=== PATIENT | female | born 1995 | race Caucasian/White ===

== ENCOUNTER 2017-08-25 23:12 | Inpatient (IN) | payer OTHER ==
[2017-08-25] MEDS ORDERED: SODIUM CHLORIDE 0.9% 1,000 ML IV STA (23:53)
[2017-08-25] MEDS ORDERED: FAMOTIDINE 20 MG/2 ML VIAL IV STA (23:53)
[2017-08-25] MEDS ORDERED: ONDANSETRON 4 MG/2 ML VIAL IVP STA (23:53)
--- NOTE | 2017-08-25 23:56 | ED ---
General Adult HPI - General Chief complaint: Nausea/Vomiting/Diarrhea Stated complaint: Vomiting Time Seen by Provider: 08/25/17 23:44 Source: patient, family, RN notes reviewed Mode of arrival: ambulatory Limitations: no limitations - History of Present Illness Initial comments: Patient is a pleasant 22-year-old female presenting to the emergency Department with complaints of nausea and vomiting. Onset was today. Patient has vomited multiple times. Patient last check her blood sugar yesterday yesterday at 157. No abdominal pain. No constipation or diarrhea. Patient still has nausea however mild at this point. Patient is diabetic without any known history of diabetic ketoacidosis. - Related Data Allergies Allergy/AdvReac Type Severity Reaction Status Date / Time azithromycin Allergy Rash/Hives Verified 08/25/17 23:20 cefprozil [From Cefzil] Allergy Rash/Hives Verified 08/25/17 23:20 Penicillins Allergy Rash/Hives Verified 08/25/17 23:20 Review of Systems ROS Statement: Those systems with pertinent positive or pertinent negative responses have been documented in the HPI. ROS Other: All systems not noted in ROS Statement are negative. Constitutional: Denies: fever Eyes: Denies: eye pain ENT: Denies: ear pain Respiratory: Denies: cough Cardiovascular: Denies: chest pain Endocrine: Reports: fatigue, polydipsia Gastrointestinal: Reports: nausea, vomiting. Denies: abdominal pain Genitourinary: Denies: dysuria Musculoskeletal: Denies: back pain Skin: Denies: rash Neurological: Denies: weakness Past Medical History Past Medical History: Diabetes Mellitus Additional Past Medical History / Comment(s): claire's History of Any Multi-Drug Resistant Organisms: None Reported Past Surgical History: Tonsillectomy Past Psychological History: No Psychological Hx Reported Smoking Status: Current every day smoker Past Alcohol Use History: None Reported Past Drug Use History: None Reported General Exam Limitations: no limitations General appearance: alert, in no apparent distress Head exam: Present: atraumatic Eye exam: Present: normal appearance, PERRL ENT exam: Present: mucous membranes dry Neck exam: Present: normal inspection Respiratory exam: Present: normal lung sounds bilaterally Cardiovascular Exam: Present: tachycardia GI/Abdominal exam: Present: soft. Absent: tenderness Extremities exam: Present: normal inspection Neurological exam: Present: alert Psychiatric exam: Present: normal affect, normal mood Skin exam: Present: normal color Course Vital Signs 08/25/17 08/26/17 23:16 01:05 Temperature 98.4 F 98.4 F Pulse Rate 142 H 149 H Respiratory 32 H 20 Rate Blood Pressure 127/80 111/71 O2 Sat by Pulse 97 100 Oximetry - Reevaluation(s) Reevaluation #1: 08/26/17 01:13 Case was discussed with Dr. Oropeza, who will consult for critical care. Medical Decision Making - Medical Decision Making Patient reevaluated. Patient and family are updated on results and plan. Patient started on DKA protocol. Dr. Prater has been paged for admission for Dr. Cabello. - Lab Data Result diagrams: 08/26/17 00:05 08/26/17 00:05 Lab Results 08/26/17 08/26/17 08/26/17 Range/Units 00:05 00:05 00:08 WBC 15.5 H (4.0-11.0) k/uL RBC 5.14 (3.80-5.40) m/uL Hgb 15.4 (11.4-16.0) gm/dL Hct 48.7 H (34.0-46.0) % MCV 94.6 (80.0-100.0) fL MCH 29.9 (25.0-35.0) pg MCHC 31.6 (31.0-37.0) g/dL RDW 12.2 (11.5-15.5) % Plt Count 385 (150-450) k/uL Neutrophils % 88 % Lymphocytes % 7 % Monocytes % 3 % Eosinophils % 1 % Basophils % 0 % Neutrophils # 13.6 H (1.3-7.7) k/uL Lymphocytes # 1.1 (1.0-4.8) k/uL Monocytes # 0.5 (0-1.0) k/uL Eosinophils # 0.1 (0-0.7) k/uL Basophils # 0.0 (0-0.2) k/uL Hypochromasia Slight Sodium 138 (137-145) mmol/L Potassium 5.7 H (3.5-5.1) mmol/L Chloride 95 L (98-107) mmol/L Carbon Dioxide <5 L* (22-30) mmol/L Anion Gap mmol/L BUN 19 H (7-17) mg/dL Creatinine 1.60 H (0.52-1.04) mg/dL Est GFR (CKD-EPI)AfAm 53 (>60 ml/min/1.73 sqM) Est GFR (CKD-EPI)NonAf 46 (>60 ml/min/1.73 sqM) Glucose 690 H* (74-99) mg/dL POC Glucose (mg/dL) >600 H (75-99) mg/dL POC Glu Quantitative Manager ID Kerry Coreas Calcium 12.9 H (8.4-10.2) mg/dL Total Bilirubin 0.6 (0.2-1.3) mg/dL AST 23 (14-36) U/L ALT 26 (9-52) U/L Alkaline Phosphatase 174 H (38-126) U/L Total Protein 8.7 H (6.3-8.2) g/dL Albumin 5.4 H (3.5-5.0) g/dL Amylase 106 (30-110) U/L Lipase 22 L (23-300) U/L Acetone, Qual Positive (Negative) Critical Care Time Critical Care Time: Yes Total Critical Care Time: 31 Disposition Clinical Impression: Diabetic ketoacidosis Disposition: ADMITTED IP TO THIS [facility] Condition: Serious Decision Time: 00:51
[2017-08-26 00:10] LABS: Glucose,Whole Blood >600 mg/dL (75-99)
[2017-08-26] MEDS ORDERED: INSULIN REGULAR 100 UNIT/ML VIAL IV ONE (00:15)
[2017-08-26 00:19] LABS: Basophils % (A) 0 %; Eosinophils # (A) 0.1 k/uL (0-0.7); Eosinophils % (A) 1 %; HCT 48.7 % (34.0-46.0); HGB 15.4 gm/dL (11.4-16.0); Hypochromasia Slight; Lymphocytes # (A) 1.1 k/uL (1.0-4.8); Lymphocytes % (A) 7 %; MCH 29.9 pg (25.0-35.0); MCHC 31.6 g/dL (31.0-37.0); MCV 94.6 fL (80.0-100.0); Mean Platelet Volume 8.1; Monocytes # (A) 0.5 k/uL (0-1.0); Monocytes % (A) 3 %; Neutrophils # (A) 13.6 k/uL (1.3-7.7); Neutrophils % (A) 88 %; Platelet Count 385 k/uL (150-450); RBC 5.14 m/uL (3.80-5.40); RDW 12.2 % (11.5-15.5); WBC 15.5 k/uL (4.0-11.0)
[2017-08-26 00:26] LABS: Albumin 5.4 g/dL (3.5-5.0); Amylase 106 U/L (30-110); Chloride 95 mmol/L (98-107); Lipase 22 U/L (23-300); Sodium 138 mmol/L (137-145); Total Bilirubin 0.6 mg/dL (0.2-1.3); Total Protein 8.7 g/dL (6.3-8.2)
[2017-08-26 00:32] LABS: Calcium 12.9 mg/dL (8.4-10.2)
[2017-08-26 00:34] LABS: Blood Urea Nitrogen 19 mg/dL (7-17); Potassium 5.7 mmol/L (3.5-5.1)
[2017-08-26 00:35] LABS: ALT 26 U/L (9-52); AST 23 U/L (14-36); Alkaline Phosphatase 174 U/L (38-126)
[2017-08-26 00:36] LABS: Carbon Dioxide <5 mmol/L (22-30); Glucose 690 mg/dL (74-99)
[2017-08-26] MEDS ORDERED: SODIUM CHLORIDE 0.9% 1,000 ML IV ONE ×2 (00:49→01:12)
[2017-08-26 01:01] LABS: Glucose,Whole Blood >600 mg/dL (75-99)
[2017-08-26] MEDS: INSULIN REGULAR 100 UNIT in SODIUM CHLORIDE 0.9% 100 ML IV SCH ×3 (01:01→21:07)
[2017-08-26 01:05] LABS: T4, Free (Free Thyroxine) 0.97 ng/dL (0.78-2.19)
--- NOTE | 2017-08-26 01:22 | XR ---
EXAMINATION TYPE: XR chest 2V DATE OF EXAM: 08/26/2017 COMPARISON: NONE HISTORY: Vomiting and nausea TECHNIQUE: Frontal and lateral views of the chest are obtained. FINDINGS: Heart and mediastinum are normal. Lungs are clear. Diaphragm is normal. Bony thorax appear s normal. IMPRESSION: Normal chest
[2017-08-26 02:09] LABS: Mucus,Urine Rare /hpf; RBC,Urine <1 /hpf (0-5); Squamous Epithelial Cell,Urine <1 /hpf (0-4); WBC,Urine 1 /hpf (0-5)
[2017-08-26 02:10] LABS: Appearance,Urine Clear (Clear); Color,Urine Light Yellow; Glucose,Urine (UA) 4+ (Negative); Protein,Urine Negative (Negative); Specific Gravity,Urine 1.011 (1.001-1.035)
[2017-08-26 02:11] LABS: Bilirubin,Urine Negative (Negative); Blood,Urine Negative (Negative); Ketones,Urine 4+ (Negative); Leukocyte Esterase,Urine Negative (Negative); Nitrite,Urine Negative (Negative); Urobilinogen,Urine <2.0 mg/dL (<2.0)
[2017-08-26 02:15] LABS: Glucose,Whole Blood >600 mg/dL (75-99)
[2017-08-26 03:14] LABS: Glucose,Whole Blood 554 mg/dL (75-99)
[2017-08-26 04:12] LABS: Glucose,Whole Blood 339 mg/dL (75-99)
[2017-08-26] MEDS: SODIUM CHLORIDE 0.9% 1,000 ML IV SCH ×4 (04:20→21:14)
[2017-08-26] MEDS: D5-0.45% NACL WITH KCL 20MEQ/L 1,000 ML IV SCH ×3 (05:01→20:28)
[2017-08-26 05:02] LABS: Phosphorus 3.5 mg/dL (2.5-4.5); Potassium 4.1 mmol/L (3.5-5.1)
[2017-08-26 05:12] LABS: Glucose,Whole Blood 300 mg/dL (75-99)
[2017-08-26 05:58] LABS: Glucose,Whole Blood 255 mg/dL (75-99)
[2017-08-26 07:08] LABS: Glucose,Whole Blood 244 mg/dL (75-99)
[2017-08-26 08:38] LABS: Glucose,Whole Blood 218 mg/dL (75-99)
[2017-08-26 09:22] LABS: Anion Gap 11 mmol/L; Blood Urea Nitrogen 16 mg/dL (7-17); Carbon Dioxide 16 mmol/L (22-30); Chloride 114 mmol/L (98-107); Glucose 207 mg/dL (74-99); Phosphorus 2.3 mg/dL (2.5-4.5); Potassium 3.8 mmol/L (3.5-5.1); Sodium 141 mmol/L (137-145)
[2017-08-26 09:24] LABS: Glucose,Whole Blood 219 mg/dL (75-99)
[2017-08-26 10:43] LABS: Glucose,Whole Blood 267 mg/dL (75-99)
[2017-08-26 11:21] LABS: Hemoglobin A1C 12.3 % (4.0-6.0)
[2017-08-26 12:37] LABS: Glucose,Whole Blood 223 mg/dL (75-99)
[2017-08-26 12:37] LABS: Glucose,Whole Blood 241 mg/dL (75-99)
[2017-08-26 12:51] VITALS: BMI 28.7
[2017-08-26] MEDS ORDERED: NALOXONE 0.4 MG/ML 1 ML VIAL IV PRN (12:56)
[2017-08-26 13:41] LABS: Glucose,Whole Blood 184 mg/dL (75-99)
--- NOTE | 2017-08-26 14:11 | P.CNPUL ---
History of Present Illness Consult date: 08/26/17 Requesting physician: Maite Prater Reason for consult: other (Acute diabetic ketoacidosis) Chief complaint: Nausea vomiting History of present illness: This is a 22-year-old female with history of type 1 diabetes, diagnosed at age 14, patient is on insulin, compliant with her insulin, and she is being followed by a statistics intern. Patient is also known to have Claire's thyroiditis, presented to the ER with 1 day history of nausea and vomiting. Patient was noted to have elevated blood sugar, anion gap metabolic acidosis, and positive ketones. Patient had no symptoms to suggest ongoing infection, she had no headache no blurred vision no dizziness no cough no wheezing no sore throat, no dysuria and no frequency no urgency. Patient was started on the DKA protocol, admitted to the intensive care unit, and I was asked to see her on consultation. She has made a significant improvement already since her presentation to the ER last night. Review of Systems 14 point review of systems were obtained, please refer to pertinent positives in HPI, otherwise remaining systems are negative. Past Medical History Past Medical History: Diabetes Mellitus Additional Past Medical History / Comment(s): claire's History of Any Multi-Drug Resistant Organisms: None Reported Past Surgical History: Tonsillectomy Past Anesthesia/Blood Transfusion Reactions: No Reported Reaction Past Psychological History: No Psychological Hx Reported Smoking Status: Current every day smoker Past Alcohol Use History: None Reported Past Drug Use History: None Reported - Past Family History Mother Family Medical History: Thyroid Disorder Additional Family Medical History / Comment(s): SVT, ablation for arrhythmia, hypothyroid Father Family Medical History: Hyperlipidemia Medications and Allergies Home Medications Medication Instructions Recorded Confirmed Type INSULIN LISPRO (humaLOG) [humaLOG] See Protocol SQ ACHS 08/26/17 08/26/17 History Insulin Degludec [Tresiba 15 unit SQ BID 08/26/17 08/26/17 History Flextouch U-200] Levothyroxine Sodium [Synthroid] 200 mcg PO DAILY 08/26/17 08/26/17 History Allergies Allergy/AdvReac Type Severity Reaction Status Date / Time azithromycin Allergy Rash/Hives Verified 08/26/17 10:14 [email or web address] [From Cefzil] Allergy Rash/Hives Verified 08/26/17 10:14 Penicillins Allergy Rash/Hives Verified 08/26/17 10:14 Physical Exam Vitals: Vital Signs Temp Pulse Pulse Resp BP BP Pulse Ox 08/26/17 13:00 97 100 08/26/17 12:50 87 100 08/26/17 12:45 98 08/26/17 12:00 107 H 18 109/67 100 08/26/17 11:00 98 18 133/65 96 08/26/17 10:00 105 H 18 108/57 98 08/26/17 09:00 118 H 18 121/68 94 L 08/26/17 08:00 107 H 18 119/71 95 08/26/17 06:57 105 H 16 116/65 98 08/26/17 06:00 105 H 18 110/64 100 08/26/17 05:00 96 16 112/67 100 08/26/17 04:00 110 H 16 149/86 100 08/26/17 03:00 98.9 F 118 H 17 138/89 99 08/26/17 02:00 118 H 20 142/77 100 08/26/17 01:05 98.4 F 149 H 20 111/71 100 08/26/17 01:03 105 H 18 99/75 100 08/25/17 23:16 98.4 F 142 H 32 H 127/80 97 Intake and Output 08/25/17 08/26/17 08/26/17 22:59 06:59 14:59 Intake Total 36.877 667.05 Output Total 800 Balance 36.877 -132.95 Intake: IV 150 D5-0.45% NaCl with KCl 150 20Meq/l 1,000 ml @ 150 mls/hr IV .Q6H40M [facility] Rx# :[id number] Intake, IV Titration 36.877 37.05 Amount Insulin Regular 100 unit 36.877 37.05 In Sodium Chloride 0.9% 100 ml @ 0.1 UNITS/KG/HR 7.19 mls/hr IV .Q14H3M [facility] Rx#:[id number] Oral 480 Output: Urine 800 Other: # Voids 1 Weight 81.3 kg 71.214 kg Physical Exam: Revealed a 22-year-old female in no form of distress, very pleasant. Head: Atraumatic, normocephalic. HEENT:[Neck is supple.] [No neck masses.] [No thyromegaly.] [No JVD.] Chest: [Clear throughout, no crackles, no rhonchi, no wheezes.] Cardiac Exam: [Normal S1 and S2, no S3 gallop, no murmur.] Abdomen: [Soft, nontender, no megaly, no rebound, no guarding, normal bowel sounds.] Extremities: [No clubbing, no edema, no cyanosis.] Neurological Exam: [No focal neurologic deficit. Psychiatric: Normal mood affect and mental status examination. Lymphatics: No lymphadenopathy. [place]: Normal range of motion, no focal deformity.] Results - Laboratory Findings CBC and BMP: 08/26/17 00:05 08/26/17 08:50 Abnormal lab findings: Abnormal Labs 08/26/17 08/26/17 08/26/17 00:05 00:05 00:05 WBC 15.5 H Hct 48.7 H Neutrophils # 13.6 H Potassium 5.7 H Chloride 95 L Carbon Dioxide <5 L* BUN 19 H Creatinine 1.60 H Glucose 690 H* POC Glucose (mg/dL) Calcium 12.9 H Phosphorus Alkaline Phosphatase 174 H Total Protein 8.7 H Albumin 5.4 H Lipase 22 L TSH 14.100 H Free T3 pg/mL 2.2 L Urine Glucose (UA) Urine Ketones Urine Mucus 08/26/17 08/26/17 08/26/17 00:08 00:59 01:00 WBC Hct Neutrophils # Potassium Chloride Carbon Dioxide BUN Creatinine Glucose POC Glucose (mg/dL) >600 H >600 H Calcium Phosphorus Alkaline Phosphatase Total Protein Albumin Lipase TSH Free T3 pg/mL Urine Glucose (UA) 4+ H Urine Ketones 4+ H Urine Mucus Rare H 08/26/17 08/26/17 08/26/17 01:58 02:58 03:56 WBC Hct Neutrophils # Potassium Chloride Carbon Dioxide BUN Creatinine Glucose POC Glucose (mg/dL) >600 H 554 H 339 H Calcium Phosphorus Alkaline Phosphatase Total Protein Albumin Lipase TSH Free T3 pg/mL Urine Glucose (UA) Urine Ketones Urine Mucus 08/26/17 08/26/17 08/26/17 04:06 04:57 05:56 WBC Hct Neutrophils # Potassium Chloride 111 H Carbon Dioxide 6 L* BUN Creatinine 1.20 H Glucose 349 H POC Glucose (mg/dL) 300 H 255 H Calcium Phosphorus Alkaline Phosphatase Total Protein Albumin Lipase TSH Free T3 pg/mL Urine Glucose (UA) Urine Ketones Urine Mucus 08/26/17 08/26/17 08/26/17 06:54 08:36 08:50 WBC Hct Neutrophils # Potassium Chloride 114 H Carbon Dioxide 16 L BUN Creatinine Glucose 207 H POC Glucose (mg/dL) 244 H 218 H Calcium Phosphorus 2.3 L Alkaline Phosphatase Total Protein Albumin Lipase TSH Free T3 pg/mL Urine Glucose (UA) Urine Ketones Urine Mucus 08/26/17 08/26/17 08/26/17 09:23 10:13 11:55 WBC Hct Neutrophils # Potassium Chloride Carbon Dioxide BUN Creatinine Glucose POC Glucose (mg/dL) 219 H 267 H 241 H Calcium Phosphorus Alkaline Phosphatase Total Protein Albumin Lipase TSH Free T3 pg/mL Urine Glucose (UA) Urine Ketones Urine Mucus 08/26/17 08/26/17 12:15 13:38 WBC Hct Neutrophils # Potassium Chloride Carbon Dioxide BUN Creatinine Glucose POC Glucose (mg/dL) 223 H 184 H Calcium Phosphorus Alkaline Phosphatase Total Protein Albumin Lipase TSH Free T3 pg/mL Urine Glucose (UA) Urine Ketones Urine Mucus - Diagnostic Findings Chest x-ray: image reviewed (Chest x-ray was reviewed, no evidence of active disease.) Assessment and Plan Assessment: Impression: 1 acute diabetic ketoacidosis, exact etiology is not clear, no clear-cut evidence of infection, patient denies noncompliance with her medications. Recommendation: Continue present treatment plan as per DKA protocol, patient is presently on insulin drip, IV fluids, clinically feeling much better, we'll continue the same. Time with Patient: Greater than 30
[2017-08-26 15:08] LABS: Glucose,Whole Blood 173 mg/dL (75-99)
[2017-08-26 15:29] LABS: Anion Gap 10 mmol/L; Blood Urea Nitrogen 16 mg/dL (7-17); Calcium 10.3 mg/dL (8.4-10.2); Carbon Dioxide 19 mmol/L (22-30); Chloride 111 mmol/L (98-107); Glucose 175 mg/dL (74-99); Potassium 3.6 mmol/L (3.5-5.1); Sodium 140 mmol/L (137-145)
[2017-08-26] MEDS ORDERED: Potassium Replacement Protocol 1 EACH MISC MISCELLANE PRN (15:58)
[2017-08-26] MEDS ORDERED: POTASSIUM CHLORIDE ER 20 MEQ TAB.ER PO SCH (16:00)
[2017-08-26 16:08] LABS: Glucose,Whole Blood 175 mg/dL (75-99)
--- NOTE | 2017-08-26 16:46 | P.HPIM ---
History of Present Illness H&P Date: 08/26/17 Chief Complaint: Nausea and vomiting Patient is a 22-year-old female with a known history of diabetes type 1 since he is 14 and Claire's thyroiditis currently taking levothyroxine at home came to ER with complaints of nausea and vomiting 1 day. Patient presented to ER for further evaluation. Patient was found to be having acidosis with bicarbonate level less than 5 and blood sugar around 600 on admission with a stone positive. Patient is being treated for acute diabetic ketoacidosis currently on insulin drip. Denied any complaints of fever or chills. Patient denied any abdominal pain. No diarrhea. No cough or sputum production. Denied dysuria or hematuria. No chest pain or shortness of breath. Patient says that he never had any DKA in the past. Denied any recent illnesses other than a cold about 2 weeks back. No sick contacts or recent travel. TSH 14.1. Free T4 are within normal limits WBC 15.5 Slightly elevated BUN/creatinine. Chest x-ray is normal UA is negative for infection. Positive for ketones Patient does use insulin syringes at home. Review of Systems Constitutional: Patient denies any fever or chills . No generalized weakness or weight loss. Abdomen: Patient denied nausea vomiting and diarrhea and abdominal pain. Cardiovascular: Patient denies any chest pain or short of breath no palpitations. Respiratory: patient denied any cough is from production. No shortness of breath Neurologic: Patient denied any numbness or tingling headache. Musculoskeletal: Patient denies any complaints of joint swelling or deformity. Skin: Negative Psychiatric: Negative Endocrine: No heat or cold intolerance. No recent weight gain. Genitourinary: No dysuria or hematuria. All other 14 point ROS negative except the above Past Medical History Past Medical History: Diabetes Mellitus Additional Past Medical History / Comment(s): claire's History of Any Multi-Drug Resistant Organisms: None Reported Past Surgical History: Tonsillectomy Past Psychological History: No Psychological Hx Reported Smoking Status: Current every day smoker Past Alcohol Use History: None Reported Past Drug Use History: None Reported - Past Family History Mother Family Medical History: Thyroid Disorder Additional Family Medical History / Comment(s): SVT, ablation for arrhythmia, hypothyroid Father Family Medical History: Hyperlipidemia Medications and Allergies Home Medications Medication Instructions Recorded Confirmed Type INSULIN LISPRO (humaLOG) [humaLOG] See Protocol SQ ACHS 08/26/17 08/26/17 History Insulin Degludec [Tresiba 15 unit SQ BID 08/26/17 08/26/17 History Flextouch U-200] Levothyroxine Sodium [Synthroid] 200 mcg PO DAILY 08/26/17 08/26/17 History Allergies Allergy/AdvReac Type Severity Reaction Status Date / Time azithromycin Allergy Rash/Hives Verified 08/26/17 10:14 [email or web address] [From Cefzil] Allergy Rash/Hives Verified 08/26/17 10:14 Penicillins Allergy Rash/Hives Verified 08/26/17 10:14 Physical Exam Vitals: Vital Signs Temp Pulse Resp BP Pulse Ox 08/26/17 09:00 118 H 18 121/68 94 L 08/26/17 08:00 107 H 18 119/71 95 08/26/17 06:57 105 H 16 116/65 98 08/26/17 06:00 105 H 18 110/64 100 08/26/17 05:00 96 16 112/67 100 08/26/17 04:00 110 H 16 149/86 100 08/26/17 03:00 98.9 F 118 H 17 138/89 99 08/26/17 02:00 118 H 20 142/77 100 08/26/17 01:05 98.4 F 149 H 20 111/71 100 08/25/17 23:16 98.4 F 142 H 32 H 127/80 97 Intake and Output 08/25/17 08/26/17 08/26/17 22:59 06:59 14:59 Intake Total 36.877 16.75 Balance 36.877 16.75 Intake: Intake, IV Titration 36.877 16.75 Amount Insulin Regular 100 unit 36.877 16.75 In Sodium Chloride 0.9% 100 ml @ 0.1 UNITS/KG/HR 7.19 mls/hr IV .Q14H3M [facility] Rx#:[id number] Other: Weight 71.214 kg PHYSICAL EXAMINATION: Patient is lying in the bed comfortably, no acute distress, awake alert and oriented.. HEENT: Normocephalic. Neck is supple. Pupils reactive. Nostrils clear. Oral cavity is moist. Ears reveal no drainage. Neck reveals no JVD, carotid bruits, or thyromegaly. CHEST EXAMINATION: Trachea is central. Symmetrical expansion. Lung villa clear to auscultation and percussion. CARDIAC: Normal S1, S2 with no gallops. No murmurs ABDOMEN: Soft. Bowel sounds normal. No organomegaly. No abdominal bruits. Extremities: reveal no edema. No clubbing or cyanosis Neurologically awake, alert, oriented x3 with well-coordinated movements. No focal deficits noted Skin: No rash or skin lesions. Psychiatric: Coperative. Nonsuicidal Musculoskeletal: No joint swelling or deformity. Normal range of motion. Results CBC & Chem 7: 08/26/17 00:05 08/26/17 15:06 Labs: Abnormal Lab Results - Last 24 Hours (Table) 08/26/17 08/26/17 08/26/17 Range/Units 00:05 00:05 00:05 WBC 15.5 H (4.0-11.0) k/uL Hct 48.7 H (34.0-46.0) % Neutrophils # 13.6 H (1.3-7.7) k/uL Potassium 5.7 H (3.5-5.1) mmol/L Chloride 95 L (98-107) mmol/L Carbon Dioxide <5 L* (22-30) mmol/L BUN 19 H (7-17) mg/dL Creatinine 1.60 H (0.52-1.04) mg/dL Glucose 690 H* (74-99) mg/dL POC Glucose (mg/dL) (75-99) mg/dL Calcium 12.9 H (8.4-10.2) mg/dL Phosphorus (2.5-4.5) mg/dL Alkaline Phosphatase 174 H (38-126) U/L Total Protein 8.7 H (6.3-8.2) g/dL Albumin 5.4 H (3.5-5.0) g/dL Lipase 22 L (23-300) U/L TSH 14.100 H (0.465-4.680) mIU/L Free T3 pg/mL 2.2 L (2.8-5.3) pg/ml Urine Glucose (UA) (Negative) Urine Ketones (Negative) Urine Mucus (None) /hpf 08/26/17 08/26/17 08/26/17 Range/Units 00:08 00:59 01:00 WBC (4.0-11.0) k/uL Hct (34.0-46.0) % Neutrophils # (1.3-7.7) k/uL Potassium (3.5-5.1) mmol/L Chloride (98-107) mmol/L Carbon Dioxide (22-30) mmol/L BUN (7-17) mg/dL Creatinine (0.52-1.04) mg/dL Glucose (74-99) mg/dL POC Glucose (mg/dL) >600 H >600 H (75-99) mg/dL Calcium (8.4-10.2) mg/dL Phosphorus (2.5-4.5) mg/dL Alkaline Phosphatase (38-126) U/L Total Protein (6.3-8.2) g/dL Albumin (3.5-5.0) g/dL Lipase (23-300) U/L TSH (0.465-4.680) mIU/L Free T3 pg/mL (2.8-5.3) pg/ml Urine Glucose (UA) 4+ H (Negative) Urine Ketones 4+ H (Negative) Urine Mucus Rare H (None) /hpf 08/26/17 08/26/17 08/26/17 Range/Units 01:58 02:58 03:56 WBC (4.0-11.0) k/uL Hct (34.0-46.0) % Neutrophils # (1.3-7.7) k/uL Potassium (3.5-5.1) mmol/L Chloride (98-107) mmol/L Carbon Dioxide (22-30) mmol/L BUN (7-17) mg/dL Creatinine (0.52-1.04) mg/dL Glucose (74-99) mg/dL POC Glucose (mg/dL) >600 H 554 H 339 H (75-99) mg/dL Calcium (8.4-10.2) mg/dL Phosphorus (2.5-4.5) mg/dL Alkaline Phosphatase (38-126) U/L Total Protein (6.3-8.2) g/dL Albumin (3.5-5.0) g/dL Lipase (23-300) U/L TSH (0.465-4.680) mIU/L Free T3 pg/mL (2.8-5.3) pg/ml Urine Glucose (UA) (Negative) Urine Ketones (Negative) Urine Mucus (None) /hpf 08/26/17 08/26/17 08/26/17 Range/Units 04:06 04:57 05:56 WBC (4.0-11.0) k/uL Hct (34.0-46.0) % Neutrophils # (1.3-7.7) k/uL Potassium (3.5-5.1) mmol/L Chloride 111 H (98-107) mmol/L Carbon Dioxide 6 L* (22-30) mmol/L BUN (7-17) mg/dL Creatinine 1.20 H (0.52-1.04) mg/dL Glucose 349 H (74-99) mg/dL POC Glucose (mg/dL) 300 H 255 H (75-99) mg/dL Calcium (8.4-10.2) mg/dL Phosphorus (2.5-4.5) mg/dL Alkaline Phosphatase (38-126) U/L Total Protein (6.3-8.2) g/dL Albumin (3.5-5.0) g/dL Lipase (23-300) U/L TSH (0.465-4.680) mIU/L Free T3 pg/mL (2.8-5.3) pg/ml Urine Glucose (UA) (Negative) Urine Ketones (Negative) Urine Mucus (None) /[facility] 08/26/17 08/26/17 08/26/17 Range/Units 06:54 08:36 08:50 WBC (4.0-11.0) k/uL Hct (34.0-46.0) % Neutrophils # (1.3-7.7) k/uL Potassium (3.5-5.1) mmol/L Chloride 114 H (98-107) mmol/L Carbon Dioxide 16 L (22-30) mmol/L BUN (7-17) mg/dL Creatinine (0.52-1.04) mg/dL Glucose 207 H (74-99) mg/dL POC Glucose (mg/dL) 244 H 218 H (75-99) mg/dL Calcium (8.4-10.2) mg/dL Phosphorus 2.3 L (2.5-4.5) mg/dL Alkaline Phosphatase (38-126) U/L Total Protein (6.3-8.2) g/dL Albumin (3.5-5.0) g/dL Lipase (23-300) U/L TSH (0.465-4.680) mIU/L Free T3 pg/mL (2.8-5.3) pg/ml Urine Glucose (UA) (Negative) Urine Ketones (Negative) Urine Mucus (None) /hpf 08/26/17 08/26/17 Range/Units 09:23 10:13 WBC (4.0-11.0) k/uL Hct (34.0-46.0) % Neutrophils # (1.3-7.7) k/uL Potassium (3.5-5.1) mmol/L Chloride (98-107) mmol/L Carbon Dioxide (22-30) mmol/L BUN (7-17) mg/dL Creatinine (0.52-1.04) mg/dL Glucose (74-99) mg/dL POC Glucose (mg/dL) 219 H 267 H (75-99) mg/dL Calcium (8.4-10.2) mg/dL Phosphorus (2.5-4.5) mg/dL Alkaline Phosphatase (38-126) U/L Total Protein (6.3-8.2) g/dL Albumin (3.5-5.0) g/dL Lipase (23-300) U/L TSH (0.465-4.680) mIU/L Free T3 pg/mL (2.8-5.3) pg/ml Urine Glucose (UA) (Negative) Urine Ketones (Negative) Urine Mucus (None) /hpf Thrombosis Risk Factor Assmnt - DVT/VTE Prophylaxis DVT/VTE Prophylaxis: Pharmacologic Prophylaxis ordered Assessment and Plan Assessment: Acute diabetic ketoacidosis Intractable nausea and vomiting. Improved now Claire's thyroiditis Elevated TSH level and normal free T4 Acute kidney injury most likely prerenal Hypercalcemia likely due to dehydration DVT prophylaxis Plan: Patient will be continued on insulin drip. Acidosis is getting better and anion gap almost closing. We will continue to monitor the patient ICU. Continue with the levothyroxine. Continue with IV hydration and follow up closely. Further conditions based on clinical course. Time with Patient: Greater than 30
[2017-08-26 17:51] LABS: Glucose,Whole Blood 77 mg/dL (75-99)
[2017-08-26 18:30] LABS: Glucose,Whole Blood 76 mg/dL (75-99)
[2017-08-26 19:15] LABS: Glucose,Whole Blood 210 mg/dL (75-99)
[2017-08-26 20:14] LABS: Glucose,Whole Blood 296 mg/dL (75-99)
[2017-08-26 20:48] LABS: Anion Gap 12 mmol/L; Blood Urea Nitrogen 14 mg/dL (7-17); Calcium 9.9 mg/dL (8.4-10.2); Carbon Dioxide 17 mmol/L (22-30); Chloride 107 mmol/L (98-107); Glucose 305 mg/dL (74-99); Phosphorus 2.5 mg/dL (2.5-4.5); Potassium 3.7 mmol/L (3.5-5.1); Sodium 136 mmol/L (137-145)
[2017-08-26 21:09] LABS: Glucose,Whole Blood 281 mg/dL (75-99)
[2017-08-26 22:08] LABS: Glucose,Whole Blood 249 mg/dL (75-99)
[2017-08-26 23:08] LABS: Glucose,Whole Blood 170 mg/dL (75-99)
[2017-08-27 00:29] LABS: Glucose,Whole Blood 141 mg/dL (75-99)
[2017-08-27 01:09] LABS: Glucose,Whole Blood 125 mg/dL (75-99)
[2017-08-27] MEDS: D5-0.45% NACL WITH KCL 20MEQ/L 1,000 ML IV SCH ×2 (01:41→07:43)
[2017-08-27] MEDS: INSULIN REGULAR 100 UNIT in SODIUM CHLORIDE 0.9% 100 ML IV SCH (01:48)
[2017-08-27 02:08] LABS: Glucose,Whole Blood 137 mg/dL (75-99)
[2017-08-27] MEDS: SODIUM CHLORIDE 0.9% 1,000 ML IV SCH (02:10)
[2017-08-27 03:04] LABS: Glucose,Whole Blood 202 mg/dL (75-99)
[2017-08-27 04:21] LABS: Glucose,Whole Blood 226 mg/dL (75-99)
[2017-08-27 05:03] LABS: Glucose,Whole Blood 237 mg/dL (75-99)
[2017-08-27 05:19] LABS: Basophils % (A) 0 %; Eosinophils # (A) 0.1 k/uL (0-0.7); Eosinophils % (A) 1 %; HCT 35.7 % (34.0-46.0); Lymphocytes # (A) 3.2 k/uL (1.0-4.8); Lymphocytes % (A) 34 %; MCH 29.7 pg (25.0-35.0); MCHC 33.8 g/dL (31.0-37.0); Mean Platelet Volume 7.7; Monocytes # (A) 0.5 k/uL (0-1.0); Monocytes % (A) 6 %; Neutrophils # (A) 5.4 k/uL (1.3-7.7); Neutrophils % (A) 58 %; Platelet Count 280 k/uL (150-450); RBC 4.07 m/uL (3.80-5.40); RDW 12.5 % (11.5-15.5); WBC 9.4 k/uL (4.0-11.0)
[2017-08-27 05:22] LABS: HGB 12.1 gm/dL (11.4-16.0); MCV 87.6 fL (80.0-100.0)
[2017-08-27 05:24] LABS: Anion Gap 10 mmol/L; Blood Urea Nitrogen 11 mg/dL (7-17); Calcium 9.5 mg/dL (8.4-10.2); Carbon Dioxide 19 mmol/L (22-30); Chloride 109 mmol/L (98-107); Glucose 232 mg/dL (74-99); Magnesium 1.5 mg/dL (1.6-2.3); Phosphorus 2.5 mg/dL (2.5-4.5); Potassium 3.8 mmol/L (3.5-5.1); Sodium 138 mmol/L (137-145)
[2017-08-27] MEDS ORDERED: Magnesium Replacement Protocol 1 EACH MISC MISCELLANE PRN (05:37)
[2017-08-27] MEDS: MAGNESIUM SULFATE-D5W PMX 1 GM in DEXTROSE/WATER 1 100ML.BAG IVPB SCH ×2 (05:48→06:51)
[2017-08-27] MEDS ORDERED: POTASSIUM CHLORIDE ER 20 MEQ TAB.ER PO SCH (06:00)
[2017-08-27 06:16] LABS: Glucose,Whole Blood 243 mg/dL (75-99)
[2017-08-27] MEDS: LEVOTHYROXINE 100 MCG TAB PO SCH (06:16)
[2017-08-27 06:55] LABS: Glucose,Whole Blood 253 mg/dL (75-99)
[2017-08-27] MEDS: PANTOPRAZOLE 40 MG TABLET PO SCH (07:44)
[2017-08-27 08:14] LABS: Glucose,Whole Blood 207 mg/dL (75-99)
[2017-08-27] MEDS ORDERED: INSULIN NPH 300 UNIT/3 ML VIAL SQ ONE (08:51)
[2017-08-27] MEDS ORDERED: SODIUM CHLORIDE 0.9% 1,000 ML IV SCH (09:00)
[2017-08-27] MEDS: INSULIN DETEMIR 100 UNIT/ML 10 ML VIAL SQ SCH (09:15)
[2017-08-27 09:20] LABS: Glucose,Whole Blood 219 mg/dL (75-99)
[2017-08-27 11:39] LABS: Glucose,Whole Blood 240 mg/dL (75-99)
[2017-08-27 12:40] LABS: Potassium 4.3 mmol/L (3.5-5.1)
[2017-08-27] MEDS: INSULIN ASPART 100 UNIT/ML 1 ML 10 ML VIAL SQ SCH ×5 (12:41→20:49)
--- NOTE | 2017-08-27 13:58 | P.PN ---
Subjective Progress Note Date: 08/27/17 Principal diagnosis: Acute diabetic ketoacidosis This is a 22-year-old female with history of type 1 diabetes, diagnosed at age 14, patient is on insulin, compliant with her insulin, and she is being followed by a will call order clerk. Patient is also known to have Mariluz's thyroiditis, presented to the ER with 1 day history of nausea and vomiting. Patient was noted to have elevated blood sugar, anion gap metabolic acidosis, and positive ketones. Patient had no symptoms to suggest ongoing infection, she had no headache no blurred vision no dizziness no cough no wheezing no sore throat, no dysuria and no frequency no urgency. Patient was started on the DKA protocol, admitted to the intensive care unit, and I was asked to see her on consultation. She has made a significant improvement already since her presentation to the ER last night. Patient was reevaluated today on 08/27/2017, doing well, relatively asymptomatic. Labs are normal, her anion gap has been completely closed. Objective - Vital Signs Vital signs: Vital Signs Temp 98.4 F 08/27/17 11:15 Pulse 93 08/27/17 11:15 Resp 18 08/27/17 11:15 BP 118/80 08/27/17 11:15 Pulse Ox 99 08/27/17 11:15 Intake & Output 08/26/17 08/27/17 08/27/17 18:59 06:59 18:59 Intake Total 1782.15 2465.452 1170.757 Output Total 800 0 0 Balance 982.15 2465.452 1170.757 Weight 71.214 kg 71.3 kg Intake: IV 900 2150 200 D5-0.45% NaCl with KCl 900 1950 200 20Meq/l 1,000 ml @ 150 mls/hr IV .Q6H40M [facility] Rx# :[id number] Magnesium Sulfate-D5w Pmx 200 1 gm In Dextrose/Water 1 100ml.bag @ 100 mls/hr IVPB Q1H [facility] Rx#: [id number] Intake, IV Titration 62.15 195.452 10.757 Amount Insulin Regular 100 unit 62.15 189.9 In Sodium Chloride 0.9% 100 ml @ 0.1 UNITS/KG/HR 7.19 mls/hr IV .Q14H3M [facility] Rx#:[id number] Insulin Regular 100 unit 5.552 10.757 In Sodium Chloride 0.9% 100 ml @ 1.25 UNIT/HR 1. 26 mls/hr IV .Q24H [facility] Rx #:[id number] Oral 820 120 960 Output: Urine 800 0 0 Other: Voiding Method Toilet Toilet Toilet Bedside Commode # Voids 0 1 0 # Bowel Movements 0 0 0 - Exam Physical Exam: Revealed a 22-year-old female in no form of distress, very pleasant. Head: Atraumatic, normocephalic. HEENT:[Neck is supple.] [No neck masses.] [No thyromegaly.] [No JVD.] Chest: [Clear throughout, no crackles, no rhonchi, no wheezes.] Cardiac Exam: [Normal S1 and S2, no S3 gallop, no murmur.] Abdomen: [Soft, nontender, no megaly, no rebound, no guarding, normal bowel sounds.] Extremities: [No clubbing, no edema, no cyanosis.] Neurological Exam: [No focal neurologic deficit. Psychiatric: Normal mood affect and mental status examination. Lymphatics: No lymphadenopathy. [place]: Normal range of motion, no focal deformity.] - Labs CBC & Chem 7: 08/27/17 04:35 08/27/17 12:05 Labs: Abnormal Lab Results - Last 24 Hours (Table) 08/26/17 08/26/17 08/26/17 Range/Units 15:05 15:06 16:07 Sodium (137-145) mmol/L Chloride 111 H (98-107) mmol/L Carbon Dioxide 19 L (22-30) mmol/L Glucose 175 H (74-99) mg/dL POC Glucose (mg/dL) 173 H 175 H (75-99) mg/dL Calcium 10.3 H (8.4-10.2) mg/dL Magnesium (1.6-2.3) mg/dL 08/26/17 08/26/17 08/26/17 Range/Units 19:14 20:09 20:12 Sodium 136 L (137-145) mmol/L Chloride (98-107) mmol/L Carbon Dioxide 17 L (22-30) mmol/L Glucose 305 H (74-99) mg/dL POC Glucose (mg/dL) 210 H 296 H (75-99) mg/dL Calcium (8.4-10.2) mg/dL Magnesium (1.6-2.3) mg/dL 08/26/17 08/26/17 08/26/17 Range/Units 21:05 22:06 23:07 Sodium (137-145) mmol/L Chloride (98-107) mmol/L Carbon Dioxide (22-30) mmol/L Glucose (74-99) mg/dL POC Glucose (mg/dL) 281 H 249 H 170 H (75-99) mg/dL Calcium (8.4-10.2) mg/dL Magnesium (1.6-2.3) mg/dL 08/27/17 08/27/17 08/27/17 Range/Units 00:28 01:07 02:06 Sodium (137-145) mmol/L Chloride (98-107) mmol/L Carbon Dioxide (22-30) mmol/L Glucose (74-99) mg/dL POC Glucose (mg/dL) 141 H 125 H 137 H (75-99) mg/dL Calcium (8.4-10.2) mg/dL Magnesium (1.6-2.3) mg/dL 08/27/17 08/27/17 08/27/17 Range/Units 03:03 04:20 04:35 Sodium (137-145) mmol/L Chloride 109 H (98-107) mmol/L Carbon Dioxide 19 L (22-30) mmol/L Glucose 232 H (74-99) mg/dL POC Glucose (mg/dL) 202 H 226 H (75-99) mg/dL Calcium (8.4-10.2) mg/dL Magnesium 1.5 L (1.6-2.3) mg/dL 08/27/17 08/27/17 08/27/17 Range/Units 05:01 06:14 06:53 Sodium (137-145) mmol/L Chloride (98-107) mmol/L Carbon Dioxide (22-30) mmol/L Glucose (74-99) mg/dL POC Glucose (mg/dL) 237 H 243 H 253 H (75-99) mg/dL Calcium (8.4-10.2) mg/dL Magnesium (1.6-2.3) mg/dL 08/27/17 08/27/17 08/27/17 Range/Units 08:12 09:17 11:28 Sodium (137-145) mmol/L Chloride (98-107) mmol/L Carbon Dioxide (22-30) mmol/L Glucose (74-99) mg/dL POC Glucose (mg/dL) 207 H 219 H 240 H (75-99) mg/dL Calcium (8.4-10.2) mg/dL Magnesium (1.6-2.3) mg/dL 08/27/17 Range/Units 12:05 Sodium 136 L (137-145) mmol/L Chloride (98-107) mmol/L Carbon Dioxide 17 L (22-30) mmol/L Glucose (74-99) mg/dL POC Glucose (mg/dL) (75-99) mg/dL Calcium (8.4-10.2) mg/dL Magnesium (1.6-2.3) mg/dL Assessment and Plan Assessment: Impression: 1 acute diabetic ketoacidosis, significant improvement noted over the last 24 hours, hence I plan to transfer the patient out of the ICU to a regular medical floor, she'll be placed on insulin sliding scale, and diet will be advanced accordingly. We'll continue to follow as needed. Time with Patient: Less than 30
[2017-08-27 15:28] VITALS: RESP 16
[2017-08-27 17:42] LABS: Glucose,Whole Blood 108 mg/dL (75-99)
[2017-08-27 20:44] LABS: Glucose,Whole Blood 111 mg/dL (75-99)
--- NOTE | 2017-08-27 23:32 | P.PN ---
Subjective Progress Note Date: 08/27/17 Principal diagnosis: Diabetic ketoacidosis Patient is a 22-year-old female with a known history of diabetes type 1 since he is 14 and Mariluz's thyroiditis currently taking levothyroxine at home came to ER with complaints of nausea and vomiting 1 day. Patient presented to ER for further evaluation. Patient was found to be having acidosis with bicarbonate level less than 5 and blood sugar around 600 on admission with a stone positive. Patient is being treated for acute diabetic ketoacidosis currently on insulin drip. Denied any complaints of fever or chills. Patient denied any abdominal pain. No diarrhea. No cough or sputum production. Denied dysuria or hematuria. No chest pain or shortness of breath. Patient says that he never had any DKA in the past. Denied any recent illnesses other than a cold about 2 weeks back. No sick contacts or recent travel. TSH 14.1. Free T4 are within normal limits WBC 15.5 Slightly elevated BUN/creatinine. Chest x-ray is normal UA is negative for infection. Positive for ketones Patient does use insulin pen at home. 08/27/2017 Patient denied any complaints of chest pain or shortness of breath. No cough or sputum production. No abdominal pain. No diarrhea or dysuria. DKA has resolved and patient was transferred to medical floor. Patient was started on Lantus and NovoLog 3 times a day before meals along with sliding scale. Otherwise blood pressure was still elevated this morning. Patient is tolerating oral diet. Anticipate discharge next 24 hours with better blood sugar control and insulin regimen. Pulmonary is on board. No other acute overnight issues All other review of systems negative except the above Current medications reviewed.. Objective - Vital Signs Vital signs: Vital Signs Temp 98.2 F 08/27/17 15:00 Pulse 83 08/27/17 15:00 Resp 16 08/27/17 15:00 BP 109/73 08/27/17 15:00 Pulse Ox 99 08/27/17 15:00 Intake & Output 08/26/17 08/27/17 08/27/17 18:59 06:59 18:59 Intake Total 1782.15 2465.452 1570.757 Output Total 800 0 0 Balance 982.15 2465.452 1570.757 Weight 71.214 kg 71.3 kg Intake: IV 900 2150 200 D5-0.45% NaCl with KCl 900 1950 200 20Meq/l 1,000 ml @ 150 mls/hr IV .Q6H40M [facility] Rx# :[id number] Magnesium Sulfate-D5w Pmx 200 1 gm In Dextrose/Water 1 100ml.bag @ 100 mls/hr IVPB Q1H [facility] Rx#: [id number] Intake, IV Titration 62.15 195.452 410.757 Amount Insulin Regular 100 unit 62.15 189.9 In Sodium Chloride 0.9% 100 ml @ 0.1 UNITS/KG/HR 7.19 mls/hr IV .Q14H3M [facility] Rx#:[id number] Insulin Regular 100 unit 5.552 10.757 In Sodium Chloride 0.9% 100 ml @ 1.25 UNIT/HR 1. 26 mls/hr IV .Q24H [facility] Rx #:[id number] Sodium Chloride 0.9% 1, 400 000 ml @ 100 mls/hr IV . Q10H [facility] Rx#:[id number] Oral 820 120 960 Output: Urine 800 0 0 Other: Voiding Method Toilet Toilet Toilet Bedside Commode # Voids 0 1 2 # Bowel Movements 0 0 0 - Exam PHYSICAL EXAMINATION: Patient is lying in the bed comfortably, no acute distress, awake alert and oriented.. HEENT: Normocephalic. Neck is supple. Pupils reactive. Nostrils clear. Oral cavity is moist. Ears reveal no drainage. Neck reveals no JVD, carotid bruits, or thyromegaly. CHEST EXAMINATION: Trachea is central. Symmetrical expansion. Lung villa clear to auscultation and percussion. CARDIAC: Normal S1, S2 with no gallops. No murmurs ABDOMEN: Soft. Bowel sounds normal. No organomegaly. No abdominal bruits. Extremities: reveal no edema. No clubbing or cyanosis Neurologically awake, alert, oriented x3 with well-coordinated movements. No focal deficits noted Skin: No rash or skin lesions. Psychiatric: Coperative. Nonsuicidal Musculoskeletal: No joint swelling or deformity. Normal range of motion. - Labs CBC & Chem 7: 08/27/17 04:35 08/27/17 12:05 Labs: Abnormal Lab Results - Last 24 Hours (Table) 08/26/17 08/26/17 08/26/17 Range/Units 15:06 16:07 19:14 Sodium (137-145) mmol/L Chloride 111 H (98-107) mmol/L Carbon Dioxide 19 L (22-30) mmol/L Glucose 175 H (74-99) mg/dL POC Glucose (mg/dL) 175 H 210 H (75-99) mg/dL Calcium 10.3 H (8.4-10.2) mg/dL Magnesium (1.6-2.3) mg/dL 08/26/17 08/26/17 08/26/17 Range/Units 20:09 20:12 21:05 Sodium 136 L (137-145) mmol/L Chloride (98-107) mmol/L Carbon Dioxide 17 L (22-30) mmol/L Glucose 305 H (74-99) mg/dL POC Glucose (mg/dL) 296 H 281 H (75-99) mg/dL Calcium (8.4-10.2) mg/dL Magnesium (1.6-2.3) mg/dL 08/26/17 08/26/17 08/27/17 Range/Units 22:06 23:07 00:28 Sodium (137-145) mmol/L Chloride (98-107) mmol/L Carbon Dioxide (22-30) mmol/L Glucose (74-99) mg/dL POC Glucose (mg/dL) 249 H 170 H 141 H (75-99) mg/dL Calcium (8.4-10.2) mg/dL Magnesium (1.6-2.3) mg/dL 08/27/17 08/27/17 08/27/17 Range/Units 01:07 02:06 03:03 Sodium (137-145) mmol/L Chloride (98-107) mmol/L Carbon Dioxide (22-30) mmol/L Glucose (74-99) mg/dL POC Glucose (mg/dL) 125 H 137 H 202 H (75-99) mg/dL Calcium (8.4-10.2) mg/dL Magnesium (1.6-2.3) mg/dL 08/27/17 08/27/17 08/27/17 Range/Units 04:20 04:35 05:01 Sodium (137-145) mmol/L Chloride 109 H (98-107) mmol/L Carbon Dioxide 19 L (22-30) mmol/L Glucose 232 H (74-99) mg/dL POC Glucose (mg/dL) 226 H 237 H (75-99) mg/dL Calcium (8.4-10.2) mg/dL Magnesium 1.5 L (1.6-2.3) mg/dL 08/27/17 08/27/17 08/27/17 Range/Units 06:14 06:53 08:12 Sodium (137-145) mmol/L Chloride (98-107) mmol/L Carbon Dioxide (22-30) mmol/L Glucose (74-99) mg/dL POC Glucose (mg/dL) 243 H 253 H 207 H (75-99) mg/dL Calcium (8.4-10.2) mg/dL Magnesium (1.6-2.3) mg/dL 08/27/17 08/27/17 08/27/17 Range/Units 09:17 11:28 12:05 Sodium 136 L (137-145) mmol/L Chloride (98-107) mmol/L Carbon Dioxide 17 L (22-30) mmol/L Glucose (74-99) mg/dL POC Glucose (mg/dL) 219 H 240 H (75-99) mg/dL Calcium (8.4-10.2) mg/dL Magnesium (1.6-2.3) mg/dL Assessment and Plan Assessment: Acute diabetic ketoacidosis. Resolved Intractable nausea and vomiting. Improved now Mariluz's thyroiditis Elevated TSH level and normal free T4 Acute kidney injury most likely prerenal Hypercalcemia likely due to dehydration. Resolved Hypomagnesemia DVT prophylaxis Plan: Patient will be continued on insulin regimen. Patient will be continued on oral diet. Replace medication. Continue with the levothyroxine. Continue with IV hydration and follow up closely. Further conditions based on clinical course. Time with Patient: Greater than 30
[2017-08-28] MEDS: LEVOTHYROXINE 100 MCG TAB PO SCH (05:46)
[2017-08-28 06:57] LABS: Glucose,Whole Blood 218 mg/dL (75-99)
[2017-08-28] MEDS: INSULIN REGULAR 100 UNIT in SODIUM CHLORIDE 0.9% 100 ML IV SCH (07:02)
[2017-08-28 07:23] LABS: Basophils % (A) 0 %; Eosinophils # (A) 0.1 k/uL (0-0.7); Eosinophils % (A) 1 %; HCT 36.1 % (34.0-46.0); HGB 11.9 gm/dL (11.4-16.0); Lymphocytes # (A) 2.1 k/uL (1.0-4.8); Lymphocytes % (A) 32 %; MCH 28.8 pg (25.0-35.0); MCHC 32.9 g/dL (31.0-37.0); MCV 87.7 fL (80.0-100.0); Mean Platelet Volume 8.5; Monocytes # (A) 0.5 k/uL (0-1.0); Monocytes % (A) 7 %; Neutrophils # (A) 3.9 k/uL (1.3-7.7); Neutrophils % (A) 59 %; Platelet Count 280 k/uL (150-450); RBC 4.12 m/uL (3.80-5.40); RDW 12.7 % (11.5-15.5); WBC 6.7 k/uL (4.0-11.0)
[2017-08-28 07:38] LABS: Anion Gap 10 mmol/L; Blood Urea Nitrogen 7 mg/dL (7-17); Calcium 9.2 mg/dL (8.4-10.2); Carbon Dioxide 21 mmol/L (22-30); Chloride 106 mmol/L (98-107); Glucose 212 mg/dL (74-99); Magnesium 1.4 mg/dL (1.6-2.3); Phosphorus 3.6 mg/dL (2.5-4.5); Potassium 4.1 mmol/L (3.5-5.1); Sodium 137 mmol/L (137-145)
[2017-08-28] MEDS: PANTOPRAZOLE 40 MG TABLET PO SCH (07:51)
[2017-08-28] MEDS: INSULIN DETEMIR 100 UNIT/ML 10 ML VIAL SQ SCH (07:51)
[2017-08-28] MEDS: INSULIN ASPART 100 UNIT/ML 1 ML 10 ML VIAL SQ SCH ×6 (07:52→18:05)
[2017-08-28 11:57] LABS: Glucose,Whole Blood 139 mg/dL (75-99)
[2017-08-28] MEDS ORDERED: Magnesium Replacement Protocol 1 EACH MISC MISCELLANE PRN (12:03)
--- NOTE | 2017-08-28 12:30 | P.DS ---
Providers Date of admission: 08/26/17 00:51 Expected date of discharge: 08/28/17 Attending physician: James Cabello Consults: 08/26/17 12:55 Consult Physician Routine Consulting Provider: Sherine Oropeza Consult Reason/Comments: ICU management Do you want consulting provider notified?: Already Contacted Primary care physician: James Cabello [facility] Course: PER DR. PRATER: Patient is a 22-year-old female with a known history of diabetes type 1 since he is 14 and Mariluz's thyroiditis currently taking levothyroxine at home came to ER with complaints of nausea and vomiting 1 day. Patient presented to ER for further evaluation. Patient was found to be having acidosis with bicarbonate level less than 5 and blood sugar around 600 on admission with a stone positive. Patient is being treated for acute diabetic ketoacidosis currently on insulin drip. Denied any complaints of fever or chills. Patient denied any abdominal pain. No diarrhea. No cough or sputum production. Denied dysuria or hematuria. No chest pain or shortness of breath. Patient says that he never had any DKA in the past. Denied any recent illnesses other than a cold about 2 weeks back. No sick contacts or recent travel. TSH 14.1. Free T4 are within normal limits WBC 15.5 Slightly elevated BUN/creatinine. Chest x-ray is normal UA is negative for infection. Positive for ketones Patient does use insulin pen at home. 08/27/2017 Patient denied any complaints of chest pain or shortness of breath. No cough or sputum production. No abdominal pain. No diarrhea or dysuria. DKA has resolved and patient was transferred to medical floor. Patient was started on Lantus and NovoLog 3 times a day before meals along with sliding scale. Otherwise blood pressure was still elevated this morning. Patient is tolerating oral diet. Anticipate discharge next 24 hours with better blood sugar control and insulin regimen. Pulmonary is on board. No other acute overnight issues Above documentation per covering provider, Dr. Prater 08/28/2017 Patient seen and examined at the bedside on rounds with Dr. Cabello. Patient is awake and alert. Dr. Cabello spoke with the patient regarding her family members concerns of depression. The patient denies depression or anxiety. She denies suicidal ideations. She states that she has just been forgetting to take her insulin and that this was not an attempt at self-harm or an attempt to end her life. Patient does report that she is going to start going to counseling, but she did not elaborate on this topic. She only stated that her family told her if she wanted to continue living at their house that she had to go to counseling , so she agreed. Patient states she is looking for a new upper marker. Will set patient up with Dr. Villarreal at the time of discharge. The patient is off her insulin drip. Her blood sugars have been well-controlled. She met with ict educator today. She was deemed stable for discharge per Dr. Cabello. She is to follow up on an outpatient basis with Dr. Cabello and upper marker. DISCHARGE DIAGNOSIS: Acute diabetic ketoacidosis. Resolved Intractable nausea and vomiting. Resolved Mariluz's thyroiditis Elevated TSH level and normal free T4 Acute kidney injury most likely prerenal, resolved at the time of discharge Hypercalcemia likely due to dehydration. Resolved Hypomagnesemia Nurse practitioner note has been reviewed by physician. Signing provider agrees with the documented findings, assessment, and plan of care. Patient Condition at Discharge: Stable Plan - Discharge Summary Discharge Rx Participant: No New Discharge Prescriptions: Continue INSULIN LISPRO (humaLOG) [humaLOG] See Protocol SQ ACHS Levothyroxine Sodium [Synthroid] 200 mcg PO DAILY Insulin Degludec [Tresiba Flextouch U-200] 15 unit SQ BID Discharge Medication List INSULIN LISPRO (humaLOG) [humaLOG] See Protocol SQ ACHS 08/26/17 [History] Insulin Degludec [Tresiba Flextouch U-200] 15 unit SQ BID 08/26/17 [History] Levothyroxine Sodium [Synthroid] 200 mcg PO DAILY 08/26/17 [History] Follow up Appointment(s)/Referral(s): Lobito Villarreal MD [REFERRING] - 1 Week ([facility]) James Cabello DO [Primary Care Provider] - 1 Week Discharge Disposition: HOME SELF-CARE
[2017-08-28] MEDS: MAGNESIUM SULFATE-D5W PMX 1 GM in DEXTROSE/WATER 1 100ML.BAG IVPB SCH ×3 (13:12→16:00)
--- NOTE | 2017-08-28 13:40 | P.PN ---
Subjective Progress Note Date: 08/28/17 Principal diagnosis: DKA Progress note dated 08/28/2017 22-year-old female with history of type 1 diabetes mellitus, diagnosed at age 14. The patient came in with complaints of nausea and vomiting. She was elevated she was noted to have been quite elevated blood sugar. She also had an anion gap metabolic acidosis and she was positive for ketones. She does have a history of Mariluz's thyroiditis as well. Anyway the patient was admitted to the ICU for the DKA protocol. The patient will likely be discharged home today. She's feeling well. Denies any chest pain or chest discomfort. No cough wheezing shortness of breath or phlegm production. No urinary complaints such as dysuria frequency or nocturia. Also no GI complaints of nausea vomiting or diarrhea. Pretty much back to baseline. She sitting at the bedside with her mother. Objective - Vital Signs Vital signs: Vital Signs Temp 98.1 F 08/28/17 05:00 Pulse 94 08/28/17 08:00 Resp 16 08/28/17 08:00 BP 107/64 08/28/17 05:00 Pulse Ox 97 08/28/17 05:00 Intake & Output 08/27/17 08/28/17 08/28/17 18:59 06:59 18:59 Intake Total 1570.757 900 480 Output Total 0 Balance 1570.757 900 480 Intake: IV 200 D5-0.45% NaCl with KCl 200 20Meq/l 1,000 ml @ 150 mls/hr IV .Q6H40M [facility] Rx# :[id number] Intake, IV Titration 410.757 Amount Insulin Regular 100 unit 10.757 In Sodium Chloride 0.9% 100 ml @ 1.25 UNIT/HR 1. 26 mls/hr IV .Q24H [facility] Rx #:[id number] Sodium Chloride 0.9% 1, 400 000 ml @ 100 mls/hr IV . Q10H [facility] Rx#:[id number] Oral 960 900 480 Output: Urine 0 Other: Voiding Method Toilet Toilet Toilet Bedside Commode Bedside Commode Bedside Commode # Voids 2 1 # Bowel Movements 0 - Exam No acute distress, oriented 3. HEENT examination is grossly unremarkable. Mucous membranes are moist. No oral lesions. Neck supple. Full range of motion. No adenopathy thyromegaly or neck vein distention. Cardiovascular examination reveals regular rhythm rate. S1-S2 normal. No S3 or S4. No discernible murmur noted. Lungs reveal clear breath sounds. Her sounds are equal bilaterally. No adventitious lung sounds including wheezes rhonchi or crackles. Abdomen soft bowel sounds are heard. No masses or tenderness. Extremities are intact. No cyanosis clubbing or edema. Skin is without rash or lesion. Neurologic examination is brief but nonfocal. - Labs CBC & Chem 7: 08/28/17 06:46 08/28/17 06:46 Labs: Abnormal Lab Results - Last 24 Hours (Table) 08/26/17 08/27/17 08/27/17 Range/Units 00:05 17:38 20:16 Carbon Dioxide (22-30) mmol/L Glucose (74-99) mg/dL POC Glucose (mg/dL) 108 H 111 H (75-99) mg/dL Hemoglobin A1c 12.3 H (4.0-6.0) % Magnesium (1.6-2.3) mg/dL 08/28/17 08/28/17 08/28/17 Range/Units 06:46 06:50 11:47 Carbon Dioxide 21 L (22-30) mmol/L Glucose 212 H (74-99) mg/dL POC Glucose (mg/dL) 218 H 139 H (75-99) mg/dL Hemoglobin A1c (4.0-6.0) % Magnesium 1.4 L (1.6-2.3) mg/dL Assessment and Plan Assessment: Assessment Acute diabetic ketoacidosis Anion gap metabolic acidosis History of Mariluz's thyroiditis Type 1 diabetes mellitus Plan: Plan dated 08/28/2017. The plan is to possibly discharge the patient home today. The patient seemed be doing relatively well. Apparently this some change in this individual taking care of her diabetes. We'll continue to follow. Prognosis is guarded. Time with Patient: Less than 30
[2017-08-28 14:35] VITALS: BP 107/67; PULSE 85; TEMP 98
--- NOTE | 2017-08-28 23:29 | P.DS ---
Providers Date of admission: 08/26/17 00:51 Expected date of discharge: 08/28/17 Attending physician: Sourav Faria Consults: 08/26/17 12:55 Consult Physician Routine Consulting Provider: Sherine Oropeza Consult Reason/Comments: ICU management Do you want consulting provider notified?: Already Contacted Hospital Course: Discharge diagnosis Acute diabetic ketoacidosis. Resolved Intractable nausea and vomiting. Improved now Mariluz's thyroiditis Elevated TSH level and normal free T4 Acute kidney injury most likely prerenal Hypercalcemia likely due to dehydration. Resolved Hypomagnesemia DVT prophylaxis Hospital course Patient is a 22-year-old female with a known history of diabetes type 1 since he is 14 and Mariluz's thyroiditis currently taking levothyroxine at home came to ER with complaints of nausea and vomiting 1 day. Patient presented to ER for further evaluation. Patient was found to be having acidosis with bicarbonate level less than 5 and blood sugar around 600 on admission with a stone positive. Patient is being treated for acute diabetic ketoacidosis currently on insulin drip. Denied any complaints of fever or chills. Patient denied any abdominal pain. No diarrhea. No cough or sputum production. Denied dysuria or hematuria. No chest pain or shortness of breath. Patient says that he never had any DKA in the past. Denied any recent illnesses other than a cold about 2 weeks back. No sick contacts or recent travel. TSH 14.1. Free T4 are within normal limits WBC 15.5 Slightly elevated BUN/creatinine. Chest x-ray is normal UA is negative for infection. Positive for ketones Patient does use insulin pen at home. 08/27/2017 Patient denied any complaints of chest pain or shortness of breath. No cough or sputum production. No abdominal pain. No diarrhea or dysuria. DKA has resolved and patient was transferred to medical floor. Patient was started on Lantus and NovoLog 3 times a day before meals along with sliding scale. Otherwise blood pressure was still elevated this morning. Patient is tolerating oral diet. Anticipate discharge next 24 hours with better blood sugar control and insulin regimen. Pulmonary is on board. No other acute overnight issues 08/28/2017 Patient was continued on Levemir 21 units daily at bedtime along with aspart 70 units 3 times a day before meals. Blood sugars controlled now. Patient is tolerating oral diet. Stable to be discharged home. Patient was recommended to follow with Dr. Villarreal, surgical processor as an outpatient. Plan: Patient was continued on insulin drip and was followed in the ICU. Her gap closes and blood sugar is controlled. Patient was started back on subcu insulin and was also continued on insulin sliding scale. Patient is tolerating oral diet now. Blood sugars are controlled. Continued on levothyroxine. Otherwise patient was counseled for insulin dose complaints and diabetic education has been provided. Patient will be followed in the endocrinology clinic. Otherwise patient is stable to be discharged home. Discharge physical examination was done and vitals reviewed. Vital Signs - 24 hr 08/28/17 08/28/17 08/28/17 05:00 08:00 14:34 Temperature 98.1 F 98 F Pulse Rate [ 94 94 85 Pulse Oximetery ] Respiratory 16 16 Rate Blood Pressure 107/64 107/67 [Left Arm] O2 Sat by Pulse 97 97 Oximetry 08/28/17 16:00 Temperature Pulse Rate [ 85 Pulse Oximetery ] Respiratory 16 Rate Blood Pressure [Left Arm] O2 Sat by Pulse Oximetry Patient Condition at Discharge: Stable Plan - Discharge Summary Discharge Rx Participant: No New Discharge Prescriptions: New Insulin Aspart [NovoLOG (formulary)] 7 unit SQ AC-TID #1 vial Insulin Detemir [Levemir] 21 unit SQ DAILY #1 bottle Continue INSULIN LISPRO (humaLOG) [humaLOG] See Protocol SQ ACHS Levothyroxine Sodium [Synthroid] 200 mcg PO DAILY Discontinued Insulin Degludec [Tresiba Flextouch U-200] 15 unit SQ BID Discharge Medication List INSULIN LISPRO (humaLOG) [humaLOG] See Protocol SQ ACHS 08/26/17 [History] Levothyroxine Sodium [Synthroid] 200 mcg PO DAILY 08/26/17 [History] Insulin Aspart [NovoLOG (formulary)] 7 unit SQ AC-TID #1 vial 08/28/17 [Rx] Insulin Detemir [Levemir] 21 unit SQ DAILY #1 bottle 08/28/17 [Rx] Follow up Appointment(s)/Referral(s): Lobito Villarreal MD [REFERRING] - 10/19/17 9:30 am () Lev Turner MD [STAFF PHYSICIAN] - 1-2 Days Patient Instructions/Handouts: Diabetic Ketoacidosis (DC) Activity/Diet/Wound Care/Special Instructions: Patient will need to find a Primary Care Provider, Dr. Cabello is unable to see patient, he doesn't accept her insurance. There is a number on the back of the card that she can call to find a provider, or she can look up a provider on the insurance website. Discharge Disposition: HOME SELF-CARE
== END 2017-08-28 18:05 | disposition home or self-care (01) | DRG 638 ==
LOC: EC 23:12 → 6SEL 08-26 00:51 → 6ICU 08-26 01:15 → 5MS5E 08-27 10:42
PROVIDERS: ADMIT Hospitalist; ATTEND Hospitalist
DX: E10.10 Type 1 diabetes mellitus with ketoacidosis without coma (principal); N17.9 Acute kidney failure, unspecified; E06.3 Autoimmune thyroiditis; E83.52 Hypercalcemia; E86.0 Dehydration; F17.200 Nicotine dependence, unspecified, uncomplicated; Z79.4 Long term (current) use of insulin; E83.42 Hypomagnesemia; Z83.49 Family history of other endocrine, nutritional and metabolic diseases; Z83.42 Family history of familial hypercholesterolemia; Z88.1 Allergy status to other antibiotic agents; Z88.0 Allergy status to penicillin
CPT/HCPCS: 36415; 71046; 80048; 80051; 80053; 81003; 82009; 82150; 82565; 82947; 83036; 83690; 83735; 84100; 84439; 84443; 84481; 84520; 85025; 96361; 96365; 96366; 96375; 99285